=== PATIENT | female | born 1970 | race Caucasian/White ===

== ENCOUNTER 2017-02-11 18:14 | Emergency (ER) | payer BC ==
[2017-02-11] MEDS ORDERED: Ondansetron INJ* 2 MG/ML VIAL IV ONE (22:08)
[2017-02-11] MEDS ORDERED: NS 0.9% 1000 ML* 1,000 ML IV ONE (22:08)
[2017-02-11 23:16] LABS: Hematocrit 44 % (35-47); Hemoglobin 14.3 g/dl (12.0-16.0); Mean Corpuscular HGB Conc 33 g/dl (31-36); Mean Corpuscular Hemoglobin 29 pg (27-31); Mean Corpuscular Volume 90 fL (80-97); Mean Platelet Volume 9 um3 (7.4-10.4); Red Blood Count 4.85 10^6/ul (4.0-5.4); Red Cell Distribution Width 14 % (10.5-15); White Blood Count 10.9 10^3/ul (3.5-10.8)
--- NOTE | 2017-02-11 23:19 | ED ---
Allison Solis Matthew, scribed for Michael Berry MD on 02/11/17 at 2215 . Abdominal Pain/Female - HPI Summary HPI Summary: A 46 y/o female presents to the ED with constant, diffuse abdominal pain since 3 days ago. The pain is rated 5/10 in severity. Associated symptoms include SOB , nausea, vomiting - yesterday, and increased urination frequency. No SHx. - History of Current Complaint Chief Complaint: EDAbdPain Stated Complaint: ABD PAIN Time Seen by Provider: 02/11/17 22:01 Hx Obtained From: Patient Hx Last Menstrual Period: END APRIL ?: No Onset/Duration: Lasting Days, Still Present Timing: Constant Severity Initially: Moderate Severity Currently: Moderate Pain Intensity: 5 Pain Scale Used: 0-10 Numeric Location: Diffuse Radiates: No Associated Signs and Symptoms: Positive: Urinary Symptoms - increased frequency , Nausea, Vomiting, Other: - SOB Allergies/Adverse Reactions: Allergies Allergy/AdvReac Type Severity Reaction Status Date / Time Aspirin Allergy nosebleeds Verified 07/17/16 19:45 Penicillins Allergy Hives Verified 07/17/16 19:45 PMH/Surg Hx/FS Hx/Imm Hx Endocrine/Hematology History: Denies: Hx Diabetes, Hx Thyroid Disease Cardiovascular History: Denies: Hx Hypertension Respiratory History: Denies: Hx Asthma, Hx Chronic Obstructive Pulmonary Disease (COPD) GI History: Denies: Hx Ulcer - Cancer History Hx Chemotherapy: No Hx Radiation Therapy: No - Surgical History Surgery Procedure, Year, and Place: tubal ligation 1991, RIGHT KNEE SURGERY - Immunization History Date of Tetanus Vaccine: utd Date of Influenza Vaccine: 07/20/16 Infectious Disease History: No Infectious Disease History: Reports: Hx Shingles Denies: Hx Hepatitis, Hx Human Immunodeficiency Virus (HIV), History Other Infectious Disease, Traveled Outside the [place] in Last 30 Days - Family History Known Family History: Positive: Diabetes Negative: Cardiac Disease, Hypertension - Social History Alcohol Use: Occasionally Hx Substance Use: No Substance Use Type: Reports: None Hx Tobacco Use: Yes Smoking Status (MU): Current Every Day Smoker Type: Cigarettes Amount Used/How Often: 1/2 PPD Review of Systems Constitutional: Negative Eyes: Negative ENT: Negative Cardiovascular: Negative Positive: Shortness Of Breath Positive: Vomiting, Nausea Positive: frequency - increased Musculoskeletal: Negative Skin: Negative Neurological: Negative Psychological: Normal All Other Systems Reviewed And Are Negative: Yes Physical Exam Triage Information Reviewed: Yes Vital Signs On Initial Exam: Initial Vitals Temp Pulse Resp Pulse Ox 97.6 F 71 20 99 02/11/17 18:17 02/11/17 18:17 02/11/17 18:17 02/11/17 18:17 Vital Signs Reviewed: Yes Appearance: Positive: Well-Appearing, No Pain Distress Skin: Positive: Warm Head/Face: Positive: Normal Head/Face Inspection Eyes: Positive: ARLIN ENT: Positive: Hearing grossly normal Neck: Positive: Supple Respiratory/Lung Sounds: Positive: Clear to Auscultation, Breath Sounds Present Cardiovascular: Positive: RRR Abdomen Description: Positive: Nontender, No Organomegaly, Soft Bowel Sounds: Positive: Present Musculoskeletal: Positive: Strength/ROM Intact Neurological: Positive: Sensory/Motor Intact, Alert, Oriented to Person Place, Time Diagnostics - Vital Signs Vital Signs Temp Pulse Resp BP Pulse Ox 02/11/17 19:26 97.5 F 67 16 121/74 100 02/11/17 18:17 97.6 F 71 20 99 - Laboratory Result Diagrams: 02/11/17 22:55 02/11/17 22:55 Lab Statement: Any lab studies that have been ordered have been reviewed, and results considered in the medical decision making process. Re-Evaluation - Re-Evaluation First Eval Change: Improved Abdominal Pain Fem Course/Dx - Course Course Of Treatment: A 46 y/o female presents to the ED with constant, diffuse abdominal pain since 3 days ago. The pain is rated 5/10 in severity. Associated symptoms include SOB, nausea, vomiting - yesterday, and increased urination frequency. No SHx. Labs were reviewed. In the ED course, the patient was given 1L of IV fluids and Zofran. The patient did well in the ED and will be discharged to home to follow-up with her PCP. - Diagnoses Provider Diagnoses: Abdominal pain Discharge - Discharge Plan Condition: Stable Disposition: HOME Patient Education Materials: Abdominal Pain (ED) Referrals: Cecilio Pacheco MD [Primary Care Provider] - 2 Days Additional Instructions: Please follow-up with your primary care physician in 2 days. The documentation as recorded by the Allison miller Matthew accurately reflects the service I personally performed and the decisions made by me, Michael Berry MD.
[2017-02-11 23:27] LABS: Albumin 4.6 g/dL (3.2-5.2); BUN/Creatinine Ratio 12.2 (8-20); C Reactive Protein 4.74 mg/L (< 5.00); Calcium 9.5 mg/dL (8.6-10.3); EGFR African American 85.9 (>60); EGFR Non-African American 66.8 (>60); Globulin 2.9 g/dL (2-4); Magnesium 1.9 mg/dL (1.9-2.7); Potassium 3.9 mmol/L (3.5-5.0); Total Bilirubin 0.5 mg/dL (0.2-1.0); Total Protein 7.5 g/dL (6.4-8.9)
[2017-02-12 01:02] LABS: Urine Bacteria Absent (Absent); Urine Bilirubin Negative (Negative); Urine Glucose Negative (Negative); Urine Nitrite Negative (Negative)
[2017-02-12 01:26] VITALS: BP 128/76
== END 2017-02-12 01:14 | disposition home or self-care (01) ==
LOC: ED 18:14
DX: R06.02 Shortness of breath (principal); R11.2 Nausea with vomiting, unspecified; F17.210 Nicotine dependence, cigarettes, uncomplicated
CPT/HCPCS: 36415; 80053; 81003; 81015; 83605; 83690; 83735; 85025; 86140; 96374; 99283; J2405

== ENCOUNTER 2017-03-20 18:44 | Emergency (ER) | payer BC ==
[2017-03-20] MEDS ORDERED: NS 0.9% 1000 ML* 1,000 ML IV SCH (19:45)
[2017-03-20 20:15] LABS: Urine Bacteria 1+ (Absent); Urine Bilirubin Negative (Negative); Urine Glucose Negative (Negative); Urine Nitrite Negative (Negative)
[2017-03-20 20:16] LABS: Hematocrit 44 % (35-47); Hemoglobin 14.7 g/dl (12.0-16.0); Mean Corpuscular HGB Conc 33 g/dl (31-36); Mean Corpuscular Hemoglobin 30 pg (27-31); Mean Corpuscular Volume 90 fL (80-97); Mean Platelet Volume 9 um3 (7.4-10.4); Red Blood Count 4.92 10^6/ul (4.0-5.4); Red Cell Distribution Width 13 % (10.5-15); White Blood Count 9.5 10^3/ul (3.5-10.8)
[2017-03-20 20:32] LABS: Albumin 4.8 g/dL (3.2-5.2); BUN/Creatinine Ratio 10.2 (8-20); Calcium 9.7 mg/dL (8.6-10.3); EGFR African American 88.2 (>60); EGFR Non-African American 68.6 (>60); Potassium 3.5 mmol/L (3.5-5.0); Total Bilirubin 0.4 mg/dL (0.2-1.0); Total Protein 7.8 g/dL (6.4-8.9)
[2017-03-20] MEDS ORDERED: Iohexol 300* (CONTRAST) 10 ML SDV IV ONE (21:17)
--- NOTE | 2017-03-20 21:43 | RAD ---
INDICATION: Diverticulitis COMPARISON: CT abdomen pelvis May 03, 2004 TECHNIQUE: Axial source images were obtained from the hemidiaphragms to the symphysis pubis following administration of oral and intravenous contrast. 93 mL Omnipaque 300 was utilized. Coronal and sagittal reconstructed images were acquired. Lung bases: The lung bases are clear. Liver: The liver is normal in size. There are several tiny left hepatic lobe hypodensities measuring 3 to 4 mm which are likely incidental cysts. There is no ductal dilatation. Gallbladder: There are no calcified gallstones. There is no evidence of wall thickening or pericholecystic fluid. Spleen: The spleen is normal in size. There are no masses. Pancreas: There is no focal pancreatic mass or ductal dilatation. Adrenal glands: There is no evidence of adrenal mass. Kidneys: The kidneys are normal in size and position. There are prompt nephrograms and there is prompt excretion bilaterally. There are no renal parenchymal masses. There is no evidence of nephrolithiasis. Adenopathy: There is no evidence of adenopathy by size criteria. Fluid collections: There are no free or localized fluid collections. Vessels:There are no significant atherosclerotic changes involving the aorta. There is no focal aneurysm. The iliac vessels are normal in caliber. The IVC appears normal. GI tract: There are no acute CT bowel findings. There is no obstruction. The stomach and small bowel appear normal. The lower GI tract is normal. The cecum, ileocecal valve, and terminal ileum appear normal. Pelvic organs: The uterus is enlarged and retroflexed with a partially calcified fundal mass measuring 3.6 cm which is most consistent with a uterine fibroid. The adnexa appear normal Bladder: There are no bladder masses. Abdominal and pelvic soft tissues: The extraperitoneal abdominal and pelvic soft tissues appear normal.. Osseous structures: There are no acute osseous findings. There is chronic L5 spondylolysis with 4 mm anterolisthesis Other: None IMPRESSION: 1. PARTIALLY CALCIFIED UTERINE MASS MOST CONSISTENT WITH A CALCIFYING UTERINE LEIOMYOMA. THIS COULD BE EVALUATED SONOGRAPHICALLY. 2. CHRONIC L5 SPONDYLOLYSIS. 3. TINY HEPATIC HYPODENSITIES ARE LIKELY INCIDENTAL CYSTS. 4. NO ACUTE CT FINDINGS. NO MASS OR INFLAMMATORY CHANGES.
--- NOTE | 2017-03-20 22:54 | RAD ---
INDICATION: Uterine leiomyoma COMPARISON: CT March 20, 2017 TECHNIQUE: Longitudinal and transverse transvaginal scans of the pelvis were obtained. FINDINGS: Uterus: The uterus is retroverted measuring 10.0 x 5.9 x 6.3 cm. There is a dominant posterior fundal fibroid measuring 3.8 x 3.2 x 3.9 cm. There is an anterior fundal fibroid measuring 0.9 cm. Endometrial thickness: The endometrial thickness is measured at 0.9 cm. There is a probable endometrial polyp measuring 1.1 x 0.7 x 1.4 cm. Suggest follow-up in 6 months. Free fluid: There is no significant free fluid . Ovaries: The ovaries are normal in size. The right ovary measures 3.0 x 1.5 x 1.4 cm. The left ovary measures 2.3 x 1.8 x 1.5 cm. There is a 1 cm cyst right ovary and 1.3 cm cyst in left ovary.. Doppler interrogation demonstrates flow to each ovary. Other: None IMPRESSION: 1. Mildly enlarged fibroid uterus. 2. Endometrial polyp. 3. Small ovarian cysts
--- NOTE | 2017-03-20 23:18 | ED ---
Pb Solis Rebecca, scribed for Bhavna Tobaruel on 03/20/17 at 1917 . Abdominal Pain/Female - HPI Summary HPI Summary: Pt is a 46 y/o F who presents to ED c/o abdominal pain. Pain began suddenly at 1700 and has been intermittent and wavering in intensity since onset. Pain is discrete to the LLQ with radiation to the left inguinal region. Currently is mild, ranked 3/10 and characterized as dull. Sx aggravated and alleviated by nothing. Additionally c/o bilateral ear pressure and dizziness. Reports chest pressure this morning at 1500, which has resolved. Denies N/V/D, hematuria, vaginal discharge, fever, inguinal swelling. Notes her current period has been present for 2 weeks. No PMHx CAD. - History of Current Complaint Chief Complaint: EDAbdPain Stated Complaint: ABD PAIN Time Seen by Provider: 03/20/17 19:16 Hx Obtained From: Patient Hx Last Menstrual Period: Currently (2 weeks) Onset/Duration: Sudden Onset, Still Present Timing: Intermittent Episode Lasting Severity Initially: Moderate Severity Currently: Mild Pain Intensity: 3 Pain Scale Used: 0-10 Numeric Location: Discrete At: LLQ Radiates: Yes Radiates to: Inguinal - Left inguinal Character: Dull Aggravating Factor(s): Nothing Alleviating Factor(s): Nothing Associated Signs and Symptoms: Positive: Chest Pain - pressure, resolved, Other : - Dizziness, ear pressure; Denies vaginal discharge and inguinal swelling. Negative: Fever, Urinary Symptoms - denies hematuria, Nausea, Vomiting, Diarrhea Allergies/Adverse Reactions: Allergies Allergy/AdvReac Type Severity Reaction Status Date / Time Aspirin Allergy nosebleeds Verified 07/17/16 19:45 Penicillins Allergy Hives Verified 07/17/16 19:45 PMH/Surg Hx/FS Hx/Imm Hx Endocrine/Hematology History: Denies: Hx Diabetes, Hx Thyroid Disease Cardiovascular History: Denies: Hx Hypertension Respiratory History: Denies: Hx Asthma, Hx Chronic Obstructive Pulmonary Disease (COPD) GI History: Denies: Hx Ulcer - Cancer History Hx Chemotherapy: No Hx Radiation Therapy: No - Surgical History Surgery Procedure, Year, and Place: tubal ligation 1991, RIGHT KNEE SURGERY - Immunization History Date of Tetanus Vaccine: utd Date of Influenza Vaccine: 07/20/16 Infectious Disease History: No Infectious Disease History: Reports: Hx Shingles Denies: Hx Hepatitis, Hx Human Immunodeficiency Virus (HIV), History Other Infectious Disease, Traveled Outside the [place] in Last 30 Days - Family History Known Family History: Positive: Diabetes Negative: Cardiac Disease, Hypertension - Social History Alcohol Use: Occasionally Hx Substance Use: No Substance Use Type: Reports: None Hx Tobacco Use: Yes Smoking Status (MU): Current Every Day Smoker Type: Cigarettes Amount Used/How Often: 1/2 PPD Review of Systems Negative: Fever Positive: Ear Ache - Bilateral ear pressure Positive: Chest Pain - chest pressure at 1500, resolved Positive: Abdominal Pain - LLQ with radiation to the left inguinal. Negative: Vomiting, Diarrhea, Nausea Positive: other - Denies vaginal discharge and inguinal swelling. Negative: hematuria Neurological: Other - Dizziness All Other Systems Reviewed And Are Negative: Yes Physical Exam - Summary Physical Exam Summary: Appearance: Well appearing, no pain distress Skin: warm, dry, reflects adequate perfusion Head/face: normal Eyes: EOMI, ARLIN ENT: normal Neck: supple, nontender Resp: CTA, breath sounds present Cardio: RRR, pulses symm Abd: Tenderness in the LLQ, soft Bowel: present Musc: normal, strength/ROM intact Neuro: normal, sensory motor intact, A&Ox3 Triage Information Reviewed: Yes Vital Signs On Initial Exam: Initial Vitals Temp Pulse Resp BP Pulse Ox 98.0 F 86 20 125/73 100 03/20/17 18:46 03/20/17 18:46 03/20/17 18:46 03/20/17 18:46 03/20/17 18:46 Vital Signs Reviewed: Yes - [place] Coma Scale Coma Scale Total: 15 Diagnostics - Vital Signs Vital Signs Temp Pulse Resp BP Pulse Ox 03/20/17 18:49 98.0 F 86 20 125/73 100 03/20/17 18:46 98.0 F 86 20 125/73 100 - Laboratory Result Diagrams: 03/20/17 20:05 03/20/17 20:05 Lab Statement: Any lab studies that have been ordered have been reviewed, and results considered in the medical decision making process. - CT Abd/Pel CT CT Interpretation: No Acute Changes - 1. PARTIALLY CALCIFIED UTERINE MASS MOST CONSISTENT WITH A CALCIFYING UTERINE LEIOMYOMA. THIS COULD BE EVALUATED SONOGRAPHICALLY. 2. CHRONIC L5 SPONDYLOLYSIS. 3. TINY HEPATIC HYPODENSITIES ARE LIKELY INCIDENTAL CYSTS. 4. NO ACUTE CT FINDINGS. NO MASS OR INFLAMMATORY CHANGES. CT Interpretation Completed By: Radiologist - Ultrasound No standard instances Ultrasound Interpretation Completed By: Radiologist - Transvaginal US: 1. Mildly enlarged fibroid uterus. 2. Endometrial polyp. 3. Small ovarian cysts - EKG 1900 Cardiac Rate: NL - Read as 149 bpm due to artifacts EKG Rhythm: Sinus Rhythm EKG Interpretation: Artifacts throughout Re-Evaluation - Re-Evaluation First Eval Re-Evaluation Time: 22:18 Change: Improved Comment: Discussed the results of the CT and that an US was ordered. Second Eval Re-Evaluation Time: 23:03 Change: Improved Comment: Discussed CT and US results with pt. She is not currently in any pain and was advised to take aleve at home at follow up with [employer]. She is agreeable with this plan. Abdominal Pain Fem Course/Dx - Course Course Of Treatment: Pt is a 46 y/o F with a CC of mild LLQ pain with radiation to the left inguinal region since 1700 today. Additionally c/o bilateral ear pressure and dizziness. Pt had atypical CP this morning for a few seconds, which relieved, unlikely acute coronary syndrome at present. Denies N/V/D, hematuria, vaginal discharge, fever, inguinal swelling. Abd/Pel CT and EKG reveal no acute findings. Transvaginal US reveals "1. Mildly enlarged fibroid uterus. 2. Endometrial polyp. 3. Small ovarian cysts." US showed fibroids of the uterus, should follow up with [employer] in the next few days. At present, pt is not in any pain. She will be D/C to home with Dx of uterine fibroids, abdominal pain and atypical CP and was instructed to take Aleve and followup with [employer]. - Diagnoses Provider Diagnoses: Fibroid uterus, Abdominal pain, Atypical chest pain Discharge - Discharge Plan Condition: Stable Disposition: HOME Patient Education Materials: Uterine Fibroids (ED), Chest Pain (ED), Abdominal Pain (ED) Referrals: Alaina Villela MD [Medical Doctor] - 3 Days The documentation as recorded by the Pb miller Rebecca accurately reflects the service I personally performed and the decisions made by , Jose Tobar.
[2017-03-21 00:04] VITALS: BP 108/79
== END 2017-03-21 00:02 | disposition home or self-care (01) ==
LOC: ED 18:44
DX: R07.89 Other chest pain (principal); D25.9 Leiomyoma of uterus, unspecified; R42 Dizziness and giddiness; F17.210 Nicotine dependence, cigarettes, uncomplicated; H92.03 Otalgia, bilateral
CPT/HCPCS: 36415; 74177; 76830; 80053; 81003; 81015; 83690; 84484; 84702; 85025; 85610; 85730; 87086; 93005; 99282; Q9967

== ENCOUNTER 2017-05-10 22:39 | Emergency (ER) | payer BC ==
[2017-05-10] MEDS ORDERED: NS 0.9% 1000 ML* 1,000 ML IV ONE (23:44)
[2017-05-11 01:48] LABS: Hematocrit 41 % (35-47); Hemoglobin 13.4 g/dl (12.0-16.0); Mean Corpuscular HGB Conc 33 g/dl (31-36); Mean Corpuscular Hemoglobin 31 pg (27-31); Mean Corpuscular Volume 94 fL (80-97); Mean Platelet Volume 9 um3 (7.4-10.4); Red Blood Count 4.39 10^6/ul (4.0-5.4); Red Cell Distribution Width 13 % (10.5-15); White Blood Count 11.1 10^3/ul (3.5-10.8)
[2017-05-11 01:50] LABS: Add Diff/Slide Review? Slide Review Added; Comments Flag Yes
[2017-05-11 01:53] LABS: Albumin 4.1 g/dL (3.2-5.2); BUN/Creatinine Ratio 15.9 (8-20); EGFR African American 88.2 (>60); EGFR Non-African American 68.6 (>60); Globulin 2.9 g/dL (2-4); Potassium 3.8 mmol/L (3.5-5.0); Total Bilirubin 0.3 mg/dL (0.2-1.0)
--- NOTE | 2017-05-11 02:07 | ED ---
GI/ HPI - HPI Summary HPI Summary: 46F presents with heavy vaginal bleeding for past week. today it has become a pad an hour. She states she feels lightheaded when she stands. She states that she has a history of excessive vaginal bleeding but normally it is a pad a day for months. She has a D&C scheduled in May. She called her obgyn today which told her to come in to get checked out. She denies any chest pain or SOB. She has mild cramping pain. She is not a control as she is a smoker. She denies any fever, flank pain, dysuria, n/v/d/c. - History of Current Complaint Chief Complaint: EDVaginalBleeding Time Seen by Provider: 05/10/17 23:43 Stated Complaint: HEAVY VAG BLEED Pain Intensity: 3 - Allergy/Home Medications Allergies/Adverse Reactions: Allergies Allergy/AdvReac Type Severity Reaction Status Date / Time Aspirin Allergy nosebleeds Verified 07/17/16 19:45 Penicillins Allergy Hives Verified 07/17/16 19:45 PMH/Surg Hx/FS Hx/Imm Hx Endocrine/Hematology History: Denies: Hx Diabetes, Hx Thyroid Disease Cardiovascular History: Denies: Hx Hypertension Respiratory History: Denies: Hx Asthma, Hx Chronic Obstructive Pulmonary Disease (COPD) GI History: Denies: Hx Ulcer - Cancer History Hx Chemotherapy: No Hx Radiation Therapy: No - Surgical History Surgery Procedure, Year, and Place: tubal ligation 1991, RIGHT KNEE SURGERY - Immunization History Date of Tetanus Vaccine: utd Date of Influenza Vaccine: 07/20/16 Infectious Disease History: No Infectious Disease History: Reports: Hx Shingles Denies: Hx Hepatitis, Hx Human Immunodeficiency Virus (HIV), History Other Infectious Disease, Traveled Outside the [place] in Last 30 Days - Family History Known Family History: Positive: Diabetes Negative: Cardiac Disease, Hypertension - Social History Alcohol Use: Occasionally Hx Substance Use: No Substance Use Type: Reports: None Hx Tobacco Use: Yes Smoking Status (MU): Current Every Day Smoker Type: Cigarettes Amount Used/How Often: 1/2 PPD Review of Systems Negative: Fever Negative: Chest Pain Negative: Shortness Of Breath Positive: Other - vaginal bleeding. Negative: Vomiting, Nausea All Other Systems Reviewed And Are Negative: Yes Physical Exam Triage Information Reviewed: Yes Vital Signs On Initial Exam: Initial Vitals Temp Pulse Resp BP Pulse Ox 98 F 90 18 135/96 100 05/10/17 22:46 05/10/17 22:46 05/10/17 22:46 05/10/17 22:46 05/10/17 22:46 Vital Signs Reviewed: Yes Appearance: Positive: Well-Appearing Skin: Positive: Warm, Dry Head/Face: Positive: Normal Head/Face Inspection Eyes: Positive: Normal, EOMI, ARLIN, Conjunctiva Clear ENT: Positive: Normal ENT inspection, Pharynx normal, TMs normal Respiratory/Lung Sounds: Positive: Clear to Auscultation, Breath Sounds Present Cardiovascular: Positive: Normal, RRR Abdomen Description: Positive: Nontender, Soft Bowel Sounds: Positive: Present Diagnostics - Vital Signs Vital Signs Temp Pulse Resp BP Pulse Ox 05/11/17 01:23 97.8 F 62 14 103/59 98 05/10/17 22:46 98 F 90 18 135/96 100 - Laboratory Lab Results: Lab Results 05/11/17 05/11/17 05/11/17 Range/Units 01:23 01:23 01:23 WBC 11.1 H (3.5-10.8) 10^3/ul RBC 4.39 (4.0-5.4) 10^6/ul Hgb 13.4 (12.0-16.0) g/dl Hct 41 (35-47) % MCV 94 (80-97) fL MCH 31 (27-31) pg MCHC 33 (31-36) g/dl RDW 13 (10.5-15) % Plt Count 199 (150-450) 10^3/ul MPV 9 (7.4-10.4) um3 Neut % (Auto) 63.6 (38-83) % Lymph % (Auto) 25.7 (25-47) % [place] % (Auto) 7.4 (1-9) % Eos % (Auto) 2.2 (0-6) % Baso % (Auto) 1.1 (0-2) % Absolute Neuts (auto) 7.1 (1.5-7.7) 10^3/ul Absolute Lymphs (auto) 2.9 (1.0-4.8) 10^3/ul Absolute Monos (auto) 0.8 (0-0.8) 10^3/ul Absolute Eos (auto) 0.2 (0-0.6) 10^3/ul Absolute Basos (auto) 0.1 (0-0.2) 10^3/ul Absolute Nucleated RBC 0.01 10^3/ul Nucleated RBC % 0.1 Sodium 136 (133-145) mmol/L Potassium 3.8 (3.5-5.0) mmol/L Chloride 107 (101-111) mmol/L Carbon Dioxide 24 (22-32) mmol/L Anion Gap 5 (2-11) mmol/L BUN 14 (6-24) mg/dL Creatinine 0.88 (0.51-0.95) mg/dL Est GFR ( Amer) 88.2 (>60) Est GFR (Non-Af Amer) 68.6 (>60) BUN/Creatinine Ratio 15.9 (8-20) Glucose 90 (70-100) mg/dL Calcium 9.0 (8.6-10.3) mg/dL Total Bilirubin 0.30 (0.2-1.0) mg/dL AST 11 L (13-39) U/L ALT 8 (7-52) U/L Alkaline Phosphatase 62 (34-104) U/L Total Protein 7.0 (6.4-8.9) g/dL Albumin 4.1 (3.2-5.2) g/dL Globulin 2.9 (2-4) g/dL Albumin/Globulin Ratio 1.4 (1-3) Blood Type O Positive Antibody Screen Pending Result Diagrams: 05/11/17 01:23 05/11/17 01:23 Lab Statement: Any lab studies that have been ordered have been reviewed, and results considered in the medical decision making process. GIGU Course/Dx - Course Course Of Treatment: 46F presents with heavy vaginal bleeding for past week. today it has become a pad an hour. She states she feels lightheaded when she stands. She states that she has a history of excessive vaginal bleeding but normally it is a pad a day for months. She has a D&C scheduled in May. She called her obgyn today which told her to come in to get checked out. She denies any chest pain or SOB. She has mild cramping pain. She is not a control as she is a smoker. vitals stable. h/h normal. discussed that do not want to place on control due to personal history of blood clots and smoking history. told to follow up with obgyn. patient understands and agrees with plan. - Diagnoses Differential Diagnoses - Female: Urinary Tract Infection, Ureteral Calculi, Other - vaginal bleeding Provider Diagnoses: Vaginal bleeding Discharge - Discharge Plan Condition: Good Disposition: HOME Patient Education Materials: Dysfunctional Uterine Bleeding (ED) Forms: *Work Release Referrals: Cecilio Pacheco MD [Primary Care Provider] - Additional Instructions: Give obgyn a call on Friday Return to ED if develop any new or worsening symptoms
[2017-05-11 02:47] VITALS: BP 114/69
== END 2017-05-11 02:48 | disposition home or self-care (01) ==
LOC: ED 22:39
DX: N93.9 Abnormal uterine and vaginal bleeding, unspecified (principal); Z88.6 Allergy status to analgesic agent; Z88.0 Allergy status to penicillin; F17.210 Nicotine dependence, cigarettes, uncomplicated
CPT/HCPCS: 36415; 80053; 85025; 86850; 86900; 86901; 99283

== ENCOUNTER 2017-05-30 06:19 | Day surgery (SDC) | payer BC ==
[~2017-05-30 06:19] MED LIST: Buffered Lidocaine 0.9% SYRIN* 5 ML/SYR SYRINGE INTRADERM ONE; Dexamethasone IV* 4 MG/ML 1 ML (4 MG) IV SLOW PU ONE; Famotidine IV* 10 MG/ML 2 ML (20 mg) IV ONE
[2017-05-30] MEDS ORDERED: Famotidine IV* 10 MG/ML 2 ML (20 mg) ONE (06:47)
[2017-05-30] MEDS ORDERED: Dexamethasone IV* 4 MG/ML 1 ML (4 MG) ONE (06:47)
[2017-05-30] MEDS ORDERED: Buffered Lidocaine 0.9% SYRIN* 5 ML/SYR SYRINGE ONE (06:48)
[2017-05-30] MEDS ORDERED: fentaNYL* 50 MCG/ML 2 ML VIAL (100 MCG VIAL) ONE (07:29)
[2017-05-30] MEDS ORDERED: Midazolam* 1 MG/ML 2 ML VIAL (2 MG) ONE (07:29)
[2017-05-30] MEDS ORDERED: Ondansetron INJ* 2 MG/ML VIAL ONE (07:48)
[2017-05-30] MEDS ORDERED: Propofol* 10 MG/ML 20 ML BTL IV PUSH ONE (07:48)
[2017-05-30] MEDS ORDERED: Ketorolac INJ* 30 MG/ML 1 ML VIAL ONE (07:48)
[2017-05-30] MEDS ORDERED: Phenylephrine IV* 40 MCG/ML 10 ML SYRINGE ONE (07:58)
[2017-05-30] MEDS ORDERED: DiMENhydriNATE IV* 50 MG/ML VIAL IV PUSH PRN (08:25)
[2017-05-30] MEDS ORDERED: fentaNYL* 50 MCG/ML 2 ML VIAL (100 MCG VIAL) IV PRN (08:25)
[2017-05-30 09:13] VITALS: BP 123/80
--- NOTE | 2017-05-30 09:15 | OP ---
DATE OF OPERATION: 05/30/17 [facility] DATE OF : 66 SURGEON: Levy Angeles MD GOVERNMENT SERVICES PROFESSIONAL: None. PRE-OP DIAGNOSIS: Menorrhagia. POST-OP DIAGNOSES: Menorrhagia, plus endometrial polyps. OPERATIVE PROCEDURE: ESTIMATED BLOOD LOSS: 50 cc. COMPLICATIONS: None. FINDINGS: On exam under anesthesia, uterus was retroverted. On hysteroscopy, the uterine cavity contained two small endometrial polyps and slightly thickened endometrium. Otherwise, no fibroids were visualized. The uterus seemed bulky. DESCRIPTION OF PROCEDURE: Patient identified, procedure identified as D and C, hysteroscopy, MyoSure. Patient was taken to the operating room, prepped and draped in the usual fashion in dorsal lithotomy position under general anesthesia. A two single-tooth tenaculum was placed on the anterior lip of the cervix. Cervix was attempted to be sound, but sound would not pass. Smaller Hao dilators were obtained. These also would not pass. Finally, an os finder was used to find the opening, and the cervix was progressively dilated up to a # 30 Hao dilator. The MyoSure hysteroscope was inserted. The above findings were noted. The MyoSure light was used to resect the endometrium and the polyp, and this was taken down to the level of the endometrium. Sharp curette was inserted and sharp curettage performed. All sponge and instrument counts were correct, and the patient returned to recovery room in stable condition. [id number]/[facility] #: [id number] MTDD
== END 2017-05-30 09:15 | disposition home or self-care (01) ==
LOC: OR 06:19
PROVIDERS: ATTEND Obstetrics & Gynecology
DX: N93.8 Other specified abnormal uterine and vaginal bleeding (principal); I34.1 Nonrheumatic mitral (valve) prolapse; F17.210 Nicotine dependence, cigarettes, uncomplicated; Z86.718 Personal history of other venous thrombosis and embolism
CPT/HCPCS: 88305; J1100; J1885; J2250; J2405; J2704; J3010

== ENCOUNTER 2017-06-03 15:54 | Emergency (ER) | payer BC ==
--- NOTE | 2017-06-03 18:01 | UC ---
Luh Solis SooYoung, scribed for Harley Amaya MD on 06/03/17 at 1652 . Abdominal Pain Female HPI - HPI Summary HPI Summary: A 46 y/o F [place] [facility] [place] LLQ abd pain onset yesterday. Radiates to epigastric abd, suprapubic abd and back. Pain rated as 4 out of 10. Pt is s/p uterine surgery on 05/30/17 for polyps and fibroids. Neither [facility] or PCP could see her for a few days. Associated sx: urinating "feels strange" but denies dysuria, vaginal bleeding. Denies: changes in BM, fever, chills. PMHx: kidney infections, denies hx of diverticulitis. - History of Current Complaint Chief Complaint: UCAbdominalPain Stated Complaint: ABDOMINAL PAIN Time Seen by Provider: 06/03/17 16:49 Hx Obtained From: Patient Hx Last Menstrual Period: Currently (2 weeks) Onset/Duration: Lasting Hours, Still Present Timing: Constant Severity Currently: Moderate Pain Intensity: 4 Pain Scale Used: 0-10 Numeric Location: Discrete At: LLQ Radiates: Yes Character: Aching Associated Signs and Symptoms: Positive: Urinary Symptoms, Vaginal Bleeding Allergies/Adverse Reactions: Allergies Allergy/AdvReac Type Severity Reaction Status Date / Time Aspirin Allergy nosebleeds Verified 05/30/17 06:53 Penicillins Allergy Hives Verified 05/30/17 06:53 PMH/Surg Hx/FS Hx/Imm Hx Previously Healthy: No Cardiovascular History: Other Other Cardiovascular History: mitrial valve prolapse GI/ History: Other Other GI/ History: kidney infection Psychological History: Depression - Surgical History Surgical History: Yes Surgery Procedure, Year, and Place: tubal ligation 1991, uterine fibroidectomy d /c 05/30/17. RIGHT KNEE SURGERY 1984? D&C 1985. right eye cataract surgery 2009. urinary, stent 2007 - Family History Known Family History: Positive: Diabetes Negative: Cardiac Disease, Hypertension - Social History Occupation: Employed Full-time Lives: Alone Alcohol Use: Occasionally Alcohol Amount: 1-2 x a year Substance Use Type: None Smoking Status (MU): Current Every Day Smoker Type: Cigarettes Amount Used/How Often: 1/2 PPD Household Exposure Type: Cigarettes - Immunization History Most Recent Tetanus Shot: 06/27/2014 Review of Systems Constitutional: Negative Skin: Negative Eyes: Negative ENT: Negative Respiratory: Negative Cardiovascular: Negative Gastrointestinal: Abdominal Pain Genitourinary: Other - pos: urinary sensation but denies dysuria, vaginal bleeding; neg: BM changes Motor: Negative Neurovascular: Negative Musculoskeletal: Negative Neurological: Negative Psychological: Negative All Other Systems Reviewed And Are Negative: Yes Physical Exam Triage Information Reviewed: Yes Appearance: Well-Appearing, No Pain Distress Vital Signs: Initial Vital Signs Temp 99.5 F 06/03/17 15:56 Pulse 78 06/03/17 15:56 Resp 16 06/03/17 15:56 BP 118/84 06/03/17 15:56 Pulse Ox 100 06/03/17 15:56 Vital Signs Reviewed: Yes Eyes: Positive: Other: - EOMI/ARLIN ENT: Positive: Hearing grossly normal Neck: Positive: Supple, Nontender Respiratory: Positive: Chest non-tender, Lungs clear, Normal breath sounds Cardiovascular: Positive: RRR Abdomen Description: Positive: Soft, Other: - pos: mild suprapubic and LLQ tenderness Bowel Sounds: Positive: Present Musculoskeletal: Positive: Strength Intact, ROM Intact Neurological Exam: Normal - Motor/sensory intact Neurological: Positive: Alert - A&oX3 Psychological: Positive: Age Appropriate Behavior Skin Exam: Normal - warm, dry, color reflects adequate perfusion Re-Evaluation - Re-Evaluation 1 Re-Evaluation Time: 17:36 Change: Unchanged Comment: Discussing consult's recommend with pt. Abd Pain Female Course/Dx - Course Course Of Treatment: BP is WNL. Medications reviewed visit. DISCUSSED WITH OBGYN DESK DIRECTOR, DR BENÍTEZ. HE RECOMMENDED F/U IN THE AM WITH [facility] IN THE AM; IF ANY WORSENING TONIGHT TO GO TO THE ED. I DISCUSSED ALL OF THIS WITH THE PATIENT. - Differential Dx/Diagnosis Provider Diagnoses: PELVIC PAIN WITH VAGINAL BLEEDING AFTER D AND C. - Physician Notification/Consults Discussed Care of Patient With: Fransico Benítez - [facility] Time Discussed With Above Provider: 17:33 Instructed by Provider To: Other - Sounds appropriate to post-op status. Fever or excessive pain, go to ED. Otherwise, Ibuprofen, Aceteminophen. F/U at [facility] tomorrow. Discharge - Discharge Plan Condition: Stable Disposition: HOME Patient Education Materials: Pelvic Pain in Women (ED), Dysfunctional Uterine Bleeding (ED) Referrals: Cecilio Pacheco MD [Primary Care Provider] - Levy Angeles MD [Medical Doctor] - Additional Instructions: FOLLOW UP WITH [facility] TOMORROW IN THE AM. I SPOKE WITH THE OBGYN DESK DIRECTOR, DR BENÍTEZ. HE RECOMMENDED YOU GO TO THE [facility]ICE IN THE MORNING FOR EVALUATION. HE WILL TELL THE [facility] PHYSICIAN ABOUT YOU. FOR TONIGHT, HE RECOMMENDS YOU GO TO THE EMERGENCY DEPARTMENT IF YOUR CONDITION WORSENS; PAIN, FEVER, YOU FEEL ILL, EXCESSIVE BLEEDING OR ANY QUESTIONS OR CONCERNS. TAKE IBUPROFEN AND OR ACETAMINOPHEN FOR PAIN NEEDED. GO TO THE EMERGENCY DEPARTMENT FOR ANY WORSENING OF YOUR CONDITION OR QUESTIONS OR CONCERNS. Lab Results - Lab Results Lab Results: 06/03/17 16:48 POC Urine Color Yellow POC Urine Clarity Clear POC Urine pH 8.0 POC Ur Specif [place] 1.015 POC Urine Protein Negative POC Ur Glucose (UA) Negative POC Urine Ketones Negative POC Urine Blood 3+ H POC Urine Nitrite Negative POC Urine Bilirubin Negative POC Urine Urobilinogen 0.2 POC U Leukocyte Esteras Negative The documentation as recorded by the Luh miller SooYoung accurately reflects the service I personally performed and the decisions made by me, Harley Amaya MD.
[2017-06-03 18:13] VITALS: BP 121/93
== END 2017-06-03 18:05 | disposition home or self-care (01) ==
LOC: UCEAST 15:54
DX: R10.2 Pelvic and perineal pain (principal); N93.8 Other specified abnormal uterine and vaginal bleeding; I34.1 Nonrheumatic mitral (valve) prolapse; F32.9 Major depressive disorder, single episode, unspecified; Z88.6 Allergy status to analgesic agent; Z88.0 Allergy status to penicillin; F17.210 Nicotine dependence, cigarettes, uncomplicated
CPT/HCPCS: 81003; 99212; G0463

== ENCOUNTER 2018-03-20 19:05 | Emergency (ER) | payer BC ==
[2018-03-20 19:18] VITALS: BP 134/93
--- NOTE | 2018-03-20 19:42 | UC ---
Rick Solis Elizabeth, scribed for Carson Coyne MD on 03/20/18 at 1933 . Ear Complaint HPI - HPI Summary HPI Summary: This patient is a 47 year old F presenting to [facility] with a chief complaint of left ear pain since 5 days ago. The patient notes that pain in her right ear also began 1 day ago. The patient rates the pain 6/10 in severity. Symptoms aggravated by nothing. Symptoms alleviated by nothing. - History of Current Complaint Chief Complaint: UCEar Stated Complaint: EAR ACHE Time Seen by Provider: 03/20/18 19:19 Hx Obtained From: Patient Hx Last Menstrual Period: Currently (2 weeks) Onset/Duration: Gradual Onset, Lasting Days - 5 days, Still Present Severity Initially: Mild Severity Currently: Mild Pain Intensity: 6 Pain Scale Used: 0-10 Numeric Aggravating Factors: Nothing Alleviating Factors: Nothing - Allergies/Home Medications Allergies/Adverse Reactions: Allergies Allergy/AdvReac Type Severity Reaction Status Date / Time aspirin Allergy See Comment Verified 03/20/18 19:24 Penicillins Allergy Hives Verified 03/20/18 19:24 PMH/Surg Hx/FS Hx/Imm Hx Previously Healthy: Yes - Surgical History Surgical History: Yes Surgery Procedure, Year, and Place: tubal ligation 1991, uterine fibroidectomy d /c 05/30/17. RIGHT KNEE SURGERY 1984? D&C 1985. right eye cataract surgery 2009. urinary, stent 2007 - Family History Known Family History: Positive: Diabetes Negative: Cardiac Disease, Hypertension - Social History Alcohol Use: Occasionally Alcohol Amount: 1-2 x a year Substance Use Type: None Smoking Status (MU): Current Every Day Smoker Type: Cigarettes Amount Used/How Often: 1/2 PPD Household Exposure Type: Cigarettes - Immunization History Most Recent Tetanus Shot: 06/27/2014 Review of Systems ENT: Ear Ache - right and left ears Respiratory: Negative - NEGATIVE COUGH Cardiovascular: Negative - NEGATIVE CHEST PAIN Gastrointestinal: Negative - NEGATIVE VOMITING All Other Systems Reviewed And Are Negative: Yes Physical Exam - Summary Physical Exam Summary: VITAL SIGNS: Reviewed. GENERAL: Patient is a well-developed and nourished FEMALE who is lying comfortable in the stretcher. Patient is not in any acute respiratory distress. HEAD AND FACE: Normocephalic EYES: PERRLA, EOMI x 2. EARS: Hearing grossly intact. Right ear canal mildly swollen and erythematous MOUTH: Oropharynx within normal limits. NECK: Supple, trachea is midline, no adenopathy, no JVD, no carotid bruit. CHEST: Symmetric, no tenderness at palpation LUNGS: Clear to auscultation bilaterally. No wheezing or crackles. CVS: Regular rate and rhythm, S1 and S2 present, no murmurs or gallops appreciated. ABDOMEN: Soft, non-tender. Bowel sounds are normal. No abdominal abnormal pulsations. EXTREMITIES: Full ROM in all major joints, no edema, no cyanosis or clubbing. NEURO: Alert and oriented x 3. No acute neurological deficits. Speech is normal and follows commands. SKIN: Dry and warm Triage Information Reviewed: Yes Vital Signs: Initial Vital Signs Temp 99.4 F 03/20/18 19:07 Pulse 86 03/20/18 19:07 Resp 18 03/20/18 19:07 BP 134/93 03/20/18 19:07 Pulse Ox 100 03/20/18 19:07 Vital Signs Reviewed: Yes Ear Complaint Course/Dx - Course Course Of Treatment: Patient is a 47-year-old female with ear pain. Patient was found with an otitis externa. She was given a prescription for ciprofloxacin otic. I discussed all the findings and test results with the patient and Patient was instructed to return to the UC or go to the ED if develops any fever, increase sore throat unable to swallow, drooling, unable to open their mouth, or any other symptoms. The patient understands and agrees. Plan of care was discussed with the patient and understands and agrees. All questions were answered at patient satisfaction. There were no further complaints or concerns. Patient is A + O X 3. hemodynamically stable. - Differential Dx/Diagnosis Provider Diagnoses: otitis externa Discharge - Sign-Out/Discharge Documenting (check all that apply): Discharge/Admit/Transfer - Discharge Plan Condition: Stable Disposition: HOME Prescriptions: Ciproflox/Dexameth OTIC.SUSP* [Ciprodex OTIC.SUSP*] 4 drop RIGHT EAR BID #1 btl Patient Education Materials: Otitis Externa (ED) Referrals: Cecilio Pacheco MD [Primary Care Provider] - Additional Instructions: Take medications as instructed Increase your fluid intake Return to the UC if symptoms worsen - Billing Disposition and Condition Condition: STABLE Disposition: HOME The documentation as recorded by the Rick miller Elizabeth accurately reflects the service I personally performed and the decisions made by me, Carson Coyne MD.
[2018-03-20] MEDS ORDERED: Ciproflox/Dexameth OTIC.SUSP* 7.5 ML BTL RIGHT EAR SCH (21:00)
== END 2018-03-20 19:45 | disposition home or self-care (01) ==
LOC: UCEAST 19:05
DX: H60.93 Unspecified otitis externa, bilateral (principal); Z88.6 Allergy status to analgesic agent; Z88.0 Allergy status to penicillin; Z83.3 Family history of diabetes mellitus
CPT/HCPCS: 99212; G0463

== ENCOUNTER 2019-01-18 18:03 | Emergency (ER) | payer BC ==
--- NOTE | 2019-01-18 18:06 | UC ---
Throat Pain/Nasal Alo HPI - HPI Summary HPI Summary: 48-year-old female presents with sudden swelling, pain in the area of the left parotid gland while eating. She states that she was eating tuna casserole and has no known allergies to these. She has no pain down her throat or feeling of swelling in her mouth or throat. She denies fever, ear pain or nasal congestion. She has had some improvement after applying ice to the area. - History of Current Complaint Stated Complaint: THROAT COMPLAINT Time Seen by Provider: 01/18/19 18:05 Hx Obtained From: Patient Hx Last Menstrual Period: Currently (2 weeks) - Allergies/Home Medications Allergies/Adverse Reactions: Allergies Allergy/AdvReac Type Severity Reaction Status Date / Time aspirin Allergy See Comment Verified 01/18/19 18:14 Penicillins Allergy Hives Verified 01/18/19 18:14 PMH/Surg Hx/FS Hx/Imm Hx Previously Healthy: Yes - Surgical History Surgical History: Yes Surgery Procedure, Year, and Place: tubal ligation 1991, uterine fibroidectomy d /c 05/30/17. RIGHT KNEE SURGERY 1984? D&C 1985. right eye cataract surgery 2009. urinary, stent 2007 - Family History Known Family History: Positive: Diabetes Negative: Cardiac Disease, Hypertension - Social History Alcohol Use: Occasionally Alcohol Amount: 1-2 x a year Substance Use Type: None Smoking Status (MU): Current Every Day Smoker Type: Cigarettes Amount Used/How Often: 1/2 PPD Household Exposure Type: Cigarettes - Immunization History Most Recent Tetanus Shot: 06/27/2014 Review of Systems All Other Systems Reviewed And Are Negative: Yes Constitutional: Negative: Fever Skin: Positive: Negative Eyes: Positive: Negative ENT: Positive: Other - facial swelling. Negative: Dental Pain, Sore Throat, Nasal Discharge Respiratory: Positive: Negative Physical Exam Triage Information Reviewed: Yes Appearance: Well-Appearing, No Pain Distress Eyes: Positive: Conjunctiva Clear ENT: Positive: TMs normal, Other - minimal tenderness of the L parotid with some fullness at the parotid sphinter/orifice in the mouth. Negative: Pharyngeal erythema, Nasal congestion, Sinus tenderness Neck: Positive: Supple, Nontender Respiratory: Positive: Lungs clear Cardiovascular: Positive: RRR Neurological Exam: Normal Neurological: Positive: Alert Psychological Exam: Normal Throat Pain/Nasal Course/Dx - Course Course Of Treatment: Patient with immediate swelling in the area of the parotid gland while eating. This has subsided relieved by now. I milked the area and it seemed like something came out though I did not see a stone. Her tenderness and swelling is minimal at this time. She was given sour candies here and will do warm compresses. - Differential Dx/Diagnosis Differential Diagnosis/HQI/PQRI: Other - parotitis, sialoadenitis, sialolithiasis Provider Diagnosis: Parotid sialolithiasis, Hypertension Discharge - Sign-Out/Discharge Documenting (check all that apply): Patient Departure All imaging exams completed and their final reports reviewed: No - Discharge Plan Condition: Improved Disposition: HOME Patient Education Materials: Hypertension (ED) Referrals: Cecilio Pacheco MD [Primary Care Provider] - Additional Instructions: Use warm compresses to the area and milk the gland as shown. Ibuprofen. Sour candies such as lemon drops may help. Return with fever, increased pain/ redness over the gland, worse, new symptoms or other concerns. Follow-up with her family doctor with any concerns. Have your doctor recheck your blood pressure within 1wk. - Billing Disposition and Condition Condition: IMPROVED Disposition: Home
[2019-01-18 18:14] VITALS: BP 148/95
== END 2019-01-18 18:30 | disposition home or self-care (01) ==
LOC: UCEAST 18:03
DX: K11.5 Sialolithiasis (principal); I10 Essential (primary) hypertension; F17.210 Nicotine dependence, cigarettes, uncomplicated; Z88.6 Allergy status to analgesic agent; Z88.0 Allergy status to penicillin
CPT/HCPCS: 99211; G0463